=== PATIENT | female | born 1940 | race Caucasian/White ===

== ENCOUNTER 2021-03-21 13:19 | Outpatient (REF) | payer MEDICARE, SELFPAY | END 2021-03-21 13:20 | disposition home or self-care (01) | LOC: NCHCN 13:19 | PROVIDERS: Visit Provider Family Medicine | DX: N39.0 Urinary tract infection, site not specified (principal) | CPT/HCPCS: 87077; 87086; 87186 ==

== ENCOUNTER 2021-10-16 15:56 | Outpatient (REF) | payer MEDICARE, SELFPAY | END 2021-10-16 15:57 | disposition home or self-care (01) | LOC: NCHCN 15:56 | PROVIDERS: Visit Provider Nurse Practitioner Family | DX: N39.0 Urinary tract infection, site not specified (principal) | CPT/HCPCS: 87077; 87086; 87186 ==

== ENCOUNTER 2022-05-14 17:59 | Outpatient (REF) | payer MEDICARE, SELFPAY | END 2022-05-14 18:00 | disposition home or self-care (01) | LOC: NCHCN 17:59 | PROVIDERS: Visit Provider Family Medicine | DX: N39.0 Urinary tract infection, site not specified (principal) | CPT/HCPCS: 87077; 87086; 87186 ==

== ENCOUNTER 2022-07-29 15:13 | Outpatient (REF) | payer MEDICARE, SELFPAY | END 2022-07-29 15:14 | disposition home or self-care (01) | LOC: NCHCN 15:13 | PROVIDERS: Visit Provider Internal Medicine | DX: N39.0 Urinary tract infection, site not specified (principal); R35.0 Frequency of micturition; Z87.442 Personal history of urinary calculi | CPT/HCPCS: 87077; 87086; 87186 ==

== ENCOUNTER → 2022-08-06 01:39 | Outpatient (CLI) | payer MEDICARE, SELFPAY ==
--- NOTE | 2022-08-06 09:00 | DI.US_ITS ---
Exam(s) US RENAL EXAM: US RENAL CLINICAL HISTORY: recurrent UTIs, N39.0 TECHNIQUE: Ultrasound performed using standard protocol. COMPARISON: No exams were available for comparison FINDINGS: The kidneys are normal in size and shape. On the right, there is no hydronephrosis, nephrolithiasis, or renal mass. On the left there is mild hydronephrosis. There is a mid pole echogenic focus measuring about 5 mill imeters probably representing a small nonobstructing stone. Note is also made probable stone in the distal left ureter measuring about 8 millimeters in diameter. . Ureteral jets are noted bilaterally. Urinary bladder is otherwise unremarkable in appearance. IMPRESSION: Probable nonobstructing left renal stone, additionally there are findings suggesting partial left ure teral obstruction with a suspected distal left ureteral stone. Additional evaluation with CT urogram suggested . DATA REPOSITORY:
== END ==
PROVIDERS: Visit Provider Internal Medicine
DX: N20.0 Calculus of kidney (principal)
CPT/HCPCS: 76770

== ENCOUNTER 2022-08-09 12:04 | Emergency (ER) | payer MEDICARE, SELFPAY ==
[2022-08-09 12:06] VITALS: BP 146/96; PULSE 80; RESP 17; TEMP 36.4; O2SAT 97
--- NOTE | 2022-08-09 12:43 | W.ED.GENAD ---
Discharge Plan Disposition Patient Disposition: HOME Condition: Stable Discharge Details Clinical Impression: Acute diarrhea Primary Care Provider: Unknown,Unknown ED Provider: Ravindra Meyer Home Meds and New Rx's Prescriptions: No Action No Known Home Meds Discharge Instructions Additional Instructions: Please use [id number] medications such as Imodium or Metamucil as discussed. Please take as directed on packaging. Stay well-hydrated and monitor for any further worsening of symptoms which would include bloody or mucus in your stool, abdominal pain, fever chills, vomiting, or other concerning symptoms. Otherwise follow-up with your primary care provider for reassessment if not improving. Referrals: Primary Care Provider [Outside] - 1 week (If not improving) Medical Decision Making Patient presenting to the emergency department for chief complaint of diarrhea. She states that she stopped antibiotics for a UTI 1 week ago and then 3 days ago started having some diarrhea. She states that it is watery and has turned to a yellow color. Patient denies fever chills, blood or mucus in her stools, recent travel, drinking unfiltered water, or other family members with similar symptoms. Physical exam is unremarkable and patient has soft nontender abdomen with normal active bowel sounds in all quadrants. Patient's presentation is highly suspicious for possible C. difficile or post antibiotic diarrhea. We will check patient's labs for any electrolyte abnormalities due to significant amount of fluid loss, will check stool specimen for blood and C. difficile, and will give patient IV fluids pending results. Reviewed labs and CBC is unremarkable, CMP shows a slightly low potassium at 3.4 which will give oral repletion otherwise that is also unremarkable, patient is negative for occult blood and negative for C. difficile. Unfortunately patient did not provide a large enough sample for bacterial pathogen and ova parasite. Given overall unremarkable labs and negative for C. difficile we will hold off on any antibiotics and will have patient continue probiotics with Metamucil and use Imodium and see if she improves in the next week. If patient has any worsening symptoms she states clear understanding to return or to follow-up with her primary care provider. After discussion of diagnosis and plan of care patient has no further needs, questions, or concerns and states clear understanding to return to the emergency department for any worsening symptoms. This documentation was generated using [employer] system, please disregard any oddities of phrase or misspellings. Lab Data Lab results reviewed: Yes I reviewed the patient's lab results. HPI General Mode of arrival: ambulatory. Date/Time Provider Initiated Documentation: 08/09/22 12:08. Limitations to Documentation: no limitations. Information obtained by: patient and RN notes reviewed. History of Present Illness 82 year old F presents to the emergency department with the chief complaint of Diarrhea, described as moderate, Quality is described as other (Cramping), and is localized to the abdomen. Patient reports no radiation. Patient started experiencing this day(s) (3) and it has been constant. No relieving factors improve symptom(s), Medication worsens symptoms . Patient notes no other symptoms.. Patient did receive the following treatments prior to arrival, none Related Data Home Medications Medication Instructions Recorded Confirmed Unknown [No Known Home Meds] 08/09/22 08/09/22 Allergies Allergy/AdvReac Type Severity Reaction Status Date / Time acetaminophen AdvReac Mild Nausea Unverified 08/09/22 12:12 General Stated Complaint: Nausea/Vomit/Diar MIKE: 3 Review of Systems Constitutional Constitutional: Denies chills and Denies fever(s) Cardiovascular Cardiovascular: Denies chest pain and Denies dyspnea Respiratory Respiratory: Denies cough and Denies dyspnea Gastrointestinal Gastrointestinal: Reports as per HPI, Denies abdominal pain, Denies melena, Denies hematochezia, Reports change in stool character, Denies constipation, Reports cramping, Reports diarrhea, Denies nausea and Denies vomiting Genitourinary Genitourinary: Denies dysuria and Denies urinary urgency Integumentary/Breasts Skin/Breast: Denies rash PFSH All Active Problems (Updated 08/09/22 @ 14:04 by Ravindra Meyer NP) Acute diarrhea (Acute) Medical History (Updated 08/09/22 @ 14:04 by Ravindra Meyer NP) Acute UTI Kidney stones Social History Smoking/Tobacco Use Status: Never Smoking risk assessment performed?: Yes Alcohol Intake: never Drug use: Never Substance use type: does not use Do you feel safe at home: Yes Do you feel safe in your relationship?: Yes Exam Const General: cooperative Orientation: alert, awake and oriented x3 Resp Effort & Inspection: normal respiratory effort and able to speak in complete sentences Auscultation: clear to auscultation bilaterally Cardio Rate: regular rate Rhythm: regular rhythm Heart Sounds: S1 normal and S2 normal GI Palpation: soft, no hepatosplenomegaly, not firm, no guarding, no masses, no pulsatile masses, not rigid, no splenomegaly and nontender Auscultation: normal bowel sounds Back/Spine/Pelvis Back: no CVA tenderness Neuro General: patient alert, patient awake, patient oriented x3, gait normal and moves all extremities Course Vital Signs Vital signs: Vital Signs Temperature 36.4 C L 08/09/22 12:06 Pulse 80 08/09/22 12:06 Respiratory Rate 17 08/09/22 12:06 Blood Pressure 146/96 H 08/09/22 12:06 Pulse Oximetry 97 08/09/22 12:06 Temperature 36.4 C L 08/09/22 12:06 Temperature Source Tympanic 08/09/22 12:06 Pulse 80 08/09/22 12:06 Respiratory Rate 17 08/09/22 12:06 Respiratory Effort Non-Labored 08/09/22 12:10 Blood Pressure 146/96 H 08/09/22 12:06 Blood Pressure Position Sitting 08/09/22 12:06 Pulse Oximetry 97 08/09/22 12:06 Oxygen Delivery Method Room Air 08/09/22 12:06 Oxygen Flow Rate 0 08/09/22 12:06 Pain Level 6 08/09/22 12:06 Lab/Test Results Lab/Test Results: 08/09/22 12:42 Stool Stool Occult Blood ([facility]) - Pending
[2022-08-09 12:50] LABS: Abs Immature Grans 0.02 10^3/uL (0.0-0.06); Absolute Basophil Count 0.08 10^3/uL (0.0-0.2); Absolute Eosinophil Count 0.03 10^3/uL (0.0-0.7); Absolute Lymphocyte Count 2.19 10^3/uL (1.2-3.4); Absolute Monocyte Count 0.49 10^3/uL (0.1-0.8); Absolute Neutrophil Count 5.21 10^3/uL (1.2-6.7); Eosinophils % 0.4; HCT 42.2 % (36.0-46.0); Immature Grans % 0.2; Lymphocytes % 27.3; MCH 29.9 pg (27.0-33.0); MCHC 33.2 % (32.0-36.0); MCV 90 fL (80-95); MPV 9.8 fL (8.0-11.0); Monocytes % 6.1; Platelet Count 237 10^3/uL (130-400); RBC 4.68 10^6/uL (3.93-5.22); RDW 13.1 % (11.7-14.6); RDW-SD 42.8 fL; WBC 8.02 10^3/uL (4.4-10.8)
[2022-08-09] MEDS: Normal Saline 500 ML IV (12:58)
[2022-08-09 12:59] LABS: ALT 21 U/L (14-59); AST 20 U/L (15-37); Albumin 4.3 g/dL (3.4-5.0); Alkaline Phosphatase 84 U/L (46-116); Anion Gap 9.1 mmol/L (3-11); BUN 12 mg/dL (7-18); Bilirubin, Total 0.6 mg/dL (0.2-1.0); CO2 29.9 mmol/L (21.0-32.0); CREATININE 0.7 mg/dL (0.55-1.02); Calcium 9.6 mg/dL (8.5-10.1); Chloride 102 mmol/L (98-107); Estimated GFR 87.37 (mL/min/1.73m2); Glucose 97 mg/dL (74-106); Magnesium 2.2 mg/dL (1.8-2.4); Potassium 3.4 mmol/L (3.5-5.1); Sodium 141 mmol/L (136-145); Total Protein 8.2 g/dL (6.4-8.2)
[2022-08-09 13:51] LABS: C Diff PCR Negative (Negative)
[2022-08-09] MEDS: Potassium Chloride 10 MEQ TABCR PO (13:51)
== END 2022-08-09 14:19 | disposition home or self-care (01) ==
PROVIDERS: Emergency Provider Nurse Practitioner Family
DX: R19.7 Diarrhea, unspecified (principal); E87.6 Hypokalemia; Z87.442 Personal history of urinary calculi; Z87.440 Personal history of urinary (tract) infections
CPT/HCPCS: 80053; 87493; 96360; 99284; 82272; 83735; 85025

== ENCOUNTER → 2022-08-12 02:56 | Outpatient (CLI) | payer MEDICARE, SELFPAY ==
--- NOTE | 2022-08-12 09:30 | DI.CT_ITS ---
Exam(s) CT RENAL COLIC WO EXAM: CT RENAL COLIC WO CLINICAL HISTORY: KIDNEY STONE, N20.0; RECURRENT UTIS. TECHNIQUE: Imaging Protocol: Axial computed tomography images with coronal and sagittal reformatted images were created and reviewed. COMPARISON: No exams were available for comparison FINDINGS: ABDOMEN: Lung Bases: There is a 0.7 cm nodule in the right lower lobe. Liver: Normal density. There is a 1.3 cm round hypodense lesion in the right lobe of the liver medial ly. It is indeterminate on this noncontrast examination. Gallbladder and biliary tract: Status post cholecystectomy. No significant biliary ductal dilatation . Pancreas: Normal density, no abnormal calcifications or inflammatory process. Spleen: Normal. Kidneys: Normal size, contour and axis.Bilateral nephrolithiasis. No evidence of hydronephrosis. Th ere is a 5 mm round cortical hypodensity in the midpole of the left kidney. This may represent a cys t but is indeterminate on this noncontrast examination. Adrenal glands: No mass is seen. Lymph nodes: Within normal limits. Abdominal Aorta: Abdominal portion non-dilated. Atherosclerosis is present. PELVIS: Bladder:Symmetric distention, no gross wall thickening. Bowel: No obstruction or bowel wall thickening. No evidence of appendicitis. There is a moderate hood unt of stool throughout the colon which may represent constipation. Peritoneal cavity: No ascites, collection or mesenteric inflammatory response. No free air. Reproductive organs: Unremarkable as visualized. Bones: Within normal limits for the patient's age. There is a hemangioma in the L4 vertebral body. There are scattered sclerotic foci seen in the spine and pelvis. Soft Tissues: Within normal limits. IMPRESSION: 1. Bilateral nephrolithiasis. No evidence of hydronephrosis. 2. 1.3 cm hypodense lesion in the right lobe of the liver. This is indeterminate. Follow-up examina tion with postcontrast CT scan or MRI is recommended. 3. 0.7 cm right lower lobe pulmonary nodule. For low risk patients, an initial follow-up examination in 6-12 months is recommended. For high risk patients, (history of smoking or other risk factors) a n initial follow-up examination in 6-12 months and again at 18-24 months is recommended. (Court et al, 2017). 4. 5 mm round hypodensity in the midpole of the left kidney. It is indeterminate on this examination . Follow-up with postcontrast CT scan or MRI is recommended. 5. A few scattered sclerotic foci seen in the spine and pelvis. While these may represent benign les ions metastatic disease cannot be excluded. Please correlate with patient's clinical history. Bone scan may be useful for further evaluation. 6. This exam contains unexpected findings. Unexpected findings RADIATION DOSE DELIVERED: 539.12mGy.cm Total DLP DATA REPOSITORY: All CT scans at this facility are submitted to the National Radiology Data Registry (NRDR) Dose Index Registry (DIR) with the [employer] (A[employer]). RADIATION OPTIMIZATION: All CT scans at this facility use at least one of these dose optimization te chniques: automated exposure control; mA and/or kV adjustment per patient size (includes targeted exa ms where dose is matched to clinical indication); or iterative reconstruction.
== END ==
PROVIDERS: PCP Nurse Practitioner Family; Visit Provider Internal Medicine
DX: N20.0 Calculus of kidney (principal); Z87.440 Personal history of urinary (tract) infections; R91.1 Solitary pulmonary nodule; K76.89 Other specified diseases of liver; Z90.49 Acquired absence of other specified parts of digestive tract; N28.89 Other specified disorders of kidney and ureter
CPT/HCPCS: 74176

== ENCOUNTER → 2022-09-16 02:14 | Outpatient (CLI) | payer MEDICARE, SELFPAY ==
--- NOTE | 2022-09-16 13:00 | DI.MRI_ITS ---
Exam(s) MR ABDOMEN WO/W EXAM: MR ABDOMEN WO/W CLINICAL HISTORY: ABNL ABD X-RAY, R93.5; KIDNEY LESION, N28.9; LIVER LESION, K76.9 TECHNIQUE: Multiplanar multisequence MRI of the Abdomen was performed. CONTRAST MATERIAL: IV Contrast: 10 mL of Dotarem contrast administered. CT CT RENAL COLIC WO from 08/12/2022 FINDINGS: Liver: There is a 1 cm round lesion in the medial aspect of the right lobe of the liver. This was pr esent on the MRI of the abdomen from 2009. It is homogeneously hyperintense on the T2 weighted image s. It is hypointense on the T1 weighted images. Following contrast administration there is progress mervat enhancement beginning peripherally. Eventually, there is complete a enhancement of the lesion. The finding is most consistent with a hepatic hemangioma. No follow-up is recommended. There is a 4 mm cyst in the medial aspect of the right lobe of the liver more inferiorly. It is homogeneously hy perintense on the T2 weighted images and shows no enhancement following contrast administration. No other suspicious hepatic masses are seen. Pancreas: Unremarkable. Gallbladder and Bile Ducts: Status post cholecystectomy. No significant biliary ductal dilatation. Adrenals: Unremarkable. Kidneys: There is a well-circumscribed 8 mm round lesion in the medial aspect of the left kidney. It is homogeneously hyperintense on T2 weighted images, hypointense on T1 weighted images and shows no enhancement. The findings are consistent with a simple cyst. There are similar sub cm lesions in th e lower poles of both kidneys. These also likely reflect simple cysts. No follow-up is recommended. Spleen: Unremarkable. Bowel: Unremarkable. Aorta: Unremarkable. Soft Tissues: Unremarkable. Bone: Unremarkable. Lymph Nodes: Unremarkable. Lung bases: There is a stable right lower lobe pulmonary nodule medially. IMPRESSION: 1. Stable hepatic hemangioma. No follow-up is recommended. 2. Simple left renal cyst. No follow-up is recommended. 3. Stable right lower lobe pulmonary nodule. DATA REPOSITORY:
[2022-09-16] MEDS: Normal Saline - Diluent 50 ML VIAL 25 ML IJ (13:30)
[2022-09-16] MEDS: Gadoterate meglumine 20 ML VIAL 10 ML IVP (13:31)
== END ==
PROVIDERS: PCP Nurse Practitioner Family; Visit Provider Internal Medicine
DX: R93.5 Abnormal findings on diagnostic imaging of other abdominal regions, including retroperitoneum (principal); N28.1 Cyst of kidney, acquired; R91.1 Solitary pulmonary nodule
CPT/HCPCS: 74183

== ENCOUNTER 2023-05-15 15:38 | Outpatient (REF) | payer MEDICARE, SELFPAY | END 2023-05-15 15:39 | disposition home or self-care (01) | LOC: NCHCN 15:38 | PROVIDERS: PCP Nurse Practitioner Family; Visit Provider Nurse Practitioner Family | DX: R30.0 Dysuria (principal) | CPT/HCPCS: 87077; 87086; 87186 ==

== ENCOUNTER 2025-06-26 15:51 | Emergency (ER) | payer MEDICARE, SELFPAY ==
[2025-06-26 15:57] VITALS: BP 147/86; PULSE 92; RESP 18; TEMP 37.3; O2SAT 98
--- NOTE | 2025-06-26 16:30 | DI.RAD_ITS ---
Exam(s) XR KNEE RT 4V AP,LAT,KEKE,PAT EXAM: XR KNEE RT 4V AP,LAT,KEKE,PAT CLINICAL HISTORY: fall yesterday, swelling. TECHNIQUE: 2D digital imaging was performed. Three views. COMPARISON: No exams were available for comparison FINDINGS: BONES: No acute fracture is present. No bony destructive lesion is seen. JOINTS: The knee is normally aligned. No joint effusion is seen. The joint spaces are maintained. No significant degenerative changes. SOFT TISSUE: Swelling. IMPRESSION: Soft tissue swelling. No evidence of fracture. The preliminary [facility] report was reviewed. DATA REPOSITORY: RADIATION DOSE DELIVERED:
--- NOTE | 2025-06-26 17:14 | W.ED.GENAD ---
Discharge Plan Disposition Patient Disposition: Home Condition: Stable Discharge Details Clinical Impression: Internal derangement of right knee Primary Care Provider: Darian Campbell ED Provider: Barry Vásquez Home Meds and New Rx's Prescriptions: New mupirocin [Centany] 2 % ointment 1 applic topical BID Qty: 15 0RF Continued turmeric 400 mg capsule 600 mg PO DAILY cholecalciferol (vitamin D3) [Vitamin D3] 50 mcg (2,000 unit) capsule 4,000 unit PO DAILY ascorbic acid (vitamin C) [Acerola C] 500 mg tablet,chewable 500 mg PO DAILY magnesium 250 mg PO DAILY coenzyme Q10 [Co Q-10] 100 mg capsule 100 mg PO DAILY Discharge Instructions Instructions: Internal Derangement of the Knee, Mupirocin Additional Instructions: You were seen in the emergency department for your fall yesterday injuring your right knee. There is no fracture seen on your x-ray, you could have an injury to the meniscus or ligaments, we have provided you with a hinged knee brace, if you have persistent pain lasting longer than 2 weeks after significant effort of rest, ice, compression and elevation as well as Tylenol and ibuprofen you should follow-up with orthopedics. We have sent you a prescription for topical mupirocin for your various abrasions, apply these with clean bandages once to twice per day. Referrals: [facility] [Provider Group] Elisabet Sena [NURSE PRACTITIONER, Medicine] Discharge Data Discharge Date/Time-TO BE ENTERED AT DEPARTURE: 06/26/25 18:23 HPI General Date/Time Provider Initiated Documentation: 06/26/25 16:38. HPI Narrative: 85 year-old female presents to ED today by POV/ambulating with a chief complaint of fall yesterday in [place], [place]- with paint o R knee and some minor bruising to hands from bracing herself. Quality described as L knee pain with weight-bearing, swelling and multiple abrasions, no radiation to chest pain prior to fall, palpitations, shortness of breath, inability to weight-bear. Severity is described as moderate. Palliating factors include nothing specific. Provoking factors include nothing specific. Patient not anticoagulated. Related Data Home Medications ?Medication ?Instructions ?Recorded ?Confirmed ascorbic acid (vitamin C) 500 mg 500 mg PO DAILY 06/26/25 06/26/25 chewable tablet (Acerola C) cholecalciferol (vitamin D3) 50 4,000 unit PO DAILY 06/26/25 06/26/25 mcg (2,000 unit) capsule (Vitamin D3) coenzyme Q10 100 mg capsule (Co 100 mg PO DAILY 06/26/25 06/26/25 Q-10) magnesium 250 mg PO DAILY 06/26/25 06/26/25 mupirocin 2 % topical ointment 1 applic topical BID #15 grams 06/26/25 (Centany) turmeric 400 mg capsule 600 mg PO DAILY 06/26/25 06/26/25 Previous Rx's ?Medication ?Instructions ?Recorded mupirocin 2 % topical ointment 1 applic topical BID #15 grams 06/26/25 (Centany) Allergies Allergy/AdvReac Type Severity Reaction Status Date / Time acetaminophen AdvReac Mild Nausea Unverified 06/26/25 16:03 General Stated Complaint: Fall/Non TraumaCriteria MIKE: 3 Review of Systems All systems reviewed & are unremarkable except as noted in HPI and below Exam Narrative Exam Narrative: GENERAL APPEARANCE: Well-nourished, non-toxic, awake and alert, atraumatic, no acute distress. SKIN: Warm, pink, dry, intact, without rashes/lesions/ulcerations. HEAD: Normocephalic, atraumatic, normal hair distribution for gender/age. EYES: Normal conjunctiva, no exudates on lids/lashes. ENT: Nares patent, no circumoral cyanosis, no facial swelling NECK: Supple, trachea midline, painless cervical ROM. LUNGS/CHEST: Non-labored respirations, normal A/P diameter, symmetrical expansion, no chest wall deformity HEART (CV/PV): No peripheral edema, no JVD. ABDOMEN: Soft, non-distended, no guarding. MSK: Normal ROM, no swelling/deformity to bilateral UEs, moving all extremities without weakness, no cyanosis, spine midline without tenderness, normal curvature, swelling and superficial abrasion to the anterior right knee, no ligamentous laxity with varus or valgus forces, no laxity with anterior drawer, Dioni negative, tenderness to the joint line, left knee benign, multiple minor abrasions to hands, no ecchymosis or swelling to left cheek NEURO: Mental Status AAOx4 - alert to person, place, time, events No facial droop, no forehead involvement. Motor: No focal weakness Sensory: sensation intact to light touch globally. Gait antalgic. PSYCH: euthymic, cooperative, pleasant, appropriate speech Course Vital Signs Vital signs: Vital Signs Temperature 37.3 C 06/26/25 15:57 Pulse 92 H 06/26/25 15:57 Respiratory Rate 18 06/26/25 15:57 Blood Pressure 147/86 H 06/26/25 15:57 Pulse Oximetry 98 06/26/25 15:57 Temperature 37.3 C 06/26/25 15:57 Temperature Source Oral 06/26/25 15:57 Pulse 92 H 06/26/25 15:57 Respiratory Rate 18 06/26/25 15:57 Blood Pressure 147/86 H 06/26/25 15:57 Pulse Oximetry 98 06/26/25 15:57 Oxygen Delivery Method Room Air 06/26/25 15:57 Oxygen Flow Rate 0 06/26/25 15:57 Pain Level 0 06/26/25 15:57 Medical Decision Making This dictation utilizes [id number] dictation software and may contain unedited grammatical errors. 85 year-old female presents to ED today by POV/ambulating with a chief complaint of fall yesterday in [place], [place]- with paint o R knee and some minor bruising to hands from bracing herself. Quality described as L knee pain with weight-bearing, swelling and multiple abrasions, no radiation to chest pain prior to fall, palpitations, shortness of breath, inability to weight-bear. Severity is described as moderate. Palliating factors include nothing specific. Provoking factors include nothing specific. Patients' medical history: Noncontributory. Family and social history: Noncontributory. Pertinent exam findings / vital signs include swelling and superficial abrasion to the anterior right knee, no ligamentous laxity with varus or valgus forces, no laxity with anterior drawer, Dioni negative, tenderness to the joint line, left knee benign, multiple minor abrasions to hands, no ecchymosis or swelling to left cheek. Differential / pathologies of concern include internal knee injury, abrasions, sprain, fracture. Diagnostic studies of: -XR R Knee- no fracture seen. Interventions of: -Hinged knee brace, f/u with PCP/ortho if pain persists > 2 weeks. ED Course/Assessment/Plan: 85-year-old female had a fall yesterday walking on sidewalk, has a right knee injury with some swelling and effusion, minor abrasions requiring no intervention, able to bear weight, given hinged knee brace for likely internal knee injury, recommend RICE therapy and therapeutic dosing of Tylenol and ibuprofen and follow-up with orthopedics if pain persist past 2 weeks. Findings not consistent with fracture or neurovascular compromise. Disposition of internal derangement of right knee. Patient verbalized understanding of the plan and return to ED criteria and engaged in shared decision making. Medical Records Medical records reviewed: Yes I reviewed the patient's medical records. Imaging Data Radiologic Study: Attestation: I personally reviewed and interpreted this imaging study as follows: Imaging: X-Ray Radiologist's impression: Exam: XR Right Knee Exam date and time: 06/26/2025 5:09 PM Age: 85 years old Clinical indication: Injury or trauma; Fall; Blunt trauma; Knee; Right TECHNIQUE: Imaging protocol: Radiologic exam of the right knee. Views: 4 or more views. COMPARISON: No relevant prior studies available. FINDINGS: Bones/joints: Bone mineralization is age-appropriate. There is no evidence of fracture. No evidence of dislocation. The joint spaces are adequately preserved; no significant degenerative narrowing and no bony erosion seen. Soft tissues: No radiopaque foreign body present. There is soft tissue swelling present. IMPRESSION: 1. No acute osseous abnormality. 2. There is soft tissue swelling present. Dictated and Authenticated by: Zachary Ocasio MD. [facility] All Active Problems (Updated 06/26/25 @ 17:55 by DORIAN Padron) Internal derangement of right knee (Acute) Medical History (Updated 06/26/25 @ 17:55 by DORIAN Padron) Kidney stones Acute UTI Social History Smoking/Tobacco Use Status: Never Smoking risk assessment performed?: Yes Alcohol Intake: never Drug use: Never Substance use type: does not use Housing: house Do you feel safe at home: Yes Do you feel safe in your relationship?: Yes
--- NOTE | 2025-06-26 17:41 | DI.[facility]AD_ITS ---
PROCEDURE INFORMATION: Exam: XR Right Knee Exam date and time: 06/26/2025 5:09 PM Age: 85 years old Clinical indication: Injury or trauma; Fall; Blunt trauma; Knee; Right TECHNIQUE: Imaging protocol: Radiologic exam of the right knee. Views: 4 or more views. COMPARISON: No relevant prior studies available. FINDINGS: Bones/joints: Bone mineralization is age-appropriate. There is no evidence of fracture. No evidence of dislocation. The joint spaces are adequately preserved; no significant degenerative narrowing and no bony erosion seen. Soft tissues: No radiopaque foreign body present. There is soft tissue swelling present. IMPRESSION: 1. No acute osseous abnormality. 2. There is soft tissue swelling present. Dictated and Authenticated by: Zachary Ocasio MD. Orderin Fahad Reddy MD
[2025-06-26 18:24] VITALS: PULSE 74; RESP 18; O2SAT 97
--- NOTE | 2025-07-11 10:29 | NUR.NOTE ---
Accessed Pt chart to print provider summary for [facility].
== END 2025-06-26 18:23 | disposition home or self-care (01) ==
LOC: ER 18:01
PROVIDERS: Emergency Provider Physician Assistant; PCP Internal Medicine
DX: M23.91 Unspecified internal derangement of right knee (principal)
CPT/HCPCS: 99283 ×2; 73564